=== PATIENT | female | born 1955 | race African-American/Black ===

== ENCOUNTER 2024-07-23 14:50 | Emergency (ER) | payer MEDICAID ==
[~2024-07-23] VITALS: Ht 167.6 cm; Wt 90.0 kg
[~2024-07-23 14:50] MED LIST: ASPI-1406 PO; ATOR20TA PO; CLON0.3T PO; HYDR-3162 PO; METF500T PO; NITR0.4T49 SL
[2024-07-23 14:53] VITALS: O2SAT 99
[2024-07-23 15:05] VITALS: TEMP 36.6
[2024-07-23 15:25] LABS: BASOPHILS % 0.5 % (0.0-2.0); EOSINOPHILS % 0.2 % (0.0-5.0); HEMATOCRIT. 36.9 % (36.0-48.0); LYMPHOCYTES % 7.9 % (20.0-50.0); MEAN CORPUSCULAR HEMOGLOBIN 27.4 pg (28.0-32.0); MEAN CORPUSCULAR HGB CONC 32.6 g/dL (31.0-37.0); MEAN CORPUSCULAR VOLUME 84.1 fL (81.0-99.0); MEAN PLATELET VOLUME 8.4 fl (7.4-10.4); MONOCYTES % 3.4 % (2.0-8.0); PLATELET 152 x1000/uL (130-400); RED BLOOD CELL COUNT 4.38 mill/uL (4.2-5.4); RED CELL DISTRIBUTION WIDTH 14.5 % (11.6-14.6); WHITE BLOOD COUNT 10.4 x1000/uL (4.5-11.0)
[2024-07-23 15:34] LABS: CHLORIDE 100 mEq/L (98-107); POTASSIUM 3.1 mEq/L (3.5-5.1); SODIUM 133 mEq/L (136-145)
[2024-07-23 15:35] LABS: CALCIUM 9.1 mg/dL (8.7-10.4); CARBON DIOXIDE 21 mEq/L (21-32)
[2024-07-23 15:39] LABS: INR 1.1; PROTHROMBIN TIME 11.9 sec (9.6-11.0)
[2024-07-23 15:40] LABS: CREATININE 0.9 mg/dL (0.6-1.0); GLUCOSE 178 mg/dL (70-105); UREA NITROGEN BLOOD 8 mg/dL (9-23)
[2024-07-23 15:41] LABS: TROPONIN I HIGH SENSITIVITY 20 ng/L (3.0-34)
[2024-07-23 15:42] LABS: ALANINE AMINOTRANSFERASE 13 IU/L (10-49); ALBUMIN 4.1 g/dL (3.2-4.8); ASPARTATE AMINOTRANSFERASE 26 IU/L (<34); BILIRUBIN DIRECT 0.3 mg/dL (<=3.0); BILIRUBIN TOTAL 1.4 mg/dL (0.1-1.0); PROTEIN TOTAL 7.9 g/dL (6.0-8.3)
[2024-07-23] MEDS: ONDANSETRON HCL 4MG/2ML INJ IV ONE (16:31)
[2024-07-23] MEDS: SODIUM CHLORIDE 0.9% 1,000 ML IV ONE (16:31)
[2024-07-23] MEDS: FAMOTIDINE 20MG/2ML VIAL IV ONE (16:31)
[2024-07-23] MEDS: KETOROLAC 30MG/ML VIAL IV ONE (16:31)
[2024-07-23 17:00] VITALS: BP 118/72; PULSE 63; RESP 10; O2SAT 98
[2024-07-23 17:00] LABS: CLARITY URINE CLOUDY (CLEAR); COLOR URINE ORANGE (YELLOW); GLUCOSE URINE NEGATIVE (NEGATIVE); KETONES URINE NEGATIVE (NEGATIVE); LEUKOCYTE ESTERASE URINE 2+ (NEGATIVE); NITRITE URINE NEGATIVE (NEGATIVE); OCCULT BLOOD URINE 3+ (NEGATIVE); PH URINE 5.5 (4.5-8.0); PROTEIN URINE 2+ (NEGATIVE); SPECIFIC GRAVITY URINE 1.016 (1.005-1.030); UROBILINOGEN URINE 0.2 E.U./dL (0.2-1.0)
[2024-07-23] MEDS ORDERED: IOHEXOL-300 100 ML BOTTLE ONE (17:22)
[2024-07-23 17:26] LABS: BACTERIA URINE 2+; RBC URINE 25-50 /hpf (0-2); SQUAMOUS EPITHELIAL CELL URINE 1+ /lpf (RARE/1+)
[2024-07-23] MEDS: POTASSIUM CHLORIDE 20MEQ/PACKET PO NR (17:30)
[2024-07-23] MEDS ORDERED: ONDA-239 PO (18:01)
== END 2024-07-23 19:04 | disposition home or self-care (01) ==
LOC: ER 14:50
DX: N20.0 Calculus of kidney (principal); R11.2 Nausea with vomiting, unspecified; E11.9 Type 2 diabetes mellitus without complications; I10 Essential (primary) hypertension; Z79.82 Long term (current) use of aspirin; Z79.84 Long term (current) use of oral hypoglycemic drugs; Z88.1 Allergy status to other antibiotic agents; Z79.899 Other long term (current) drug therapy; Z88.2 Allergy status to sulfonamides; Z93.3 Colostomy status
CPT/HCPCS: 99285; 74177; 96374; 96375; 80076; 80048; 81003; 83690; 85025; 85610; 84484; 36415; J1885; Q9967; J3490; J2405; J7030